=== PATIENT | male | born 1995 | race Caucasian/White ===

== ENCOUNTER 2023-12-23 13:10 | Emergency (ER) | payer OTHER ==
[2023-12-23 13:53] VITALS: O2SAT 98
--- NOTE | 2023-12-23 13:53 | ED Physician Documentation ---
PD HPI BACK PAIN - Stated complaint Stated Complaint: LOWER BACK/RT LEG PX - Chief complaint Chief Complaint: Back Pain - History obtained from History obtained from: Patient - History of Present Illness Timing - onset: How many days ago (3) Timing - duration: Days (3) Timing - details: Abrupt onset, Still present Location: Lower, Right, Other (middle) Quality: Pain, Spasm Associated symptoms: No: Fever, Weakness, Numbness, Incontinent of urine Contributing factors: Trauma (he was pushing a heavy barrel up an incline and felt an abrupt "snap" in low back and abrupt pain. Went to knees and unable to move initially due to pain on movement. Improved minimally over past 2 days.) Similar symptoms before: Has not had sx before Review of Systems Constitutional: denies: Fever, Chills : denies: Incontinent Neurologic: denies: Focal weakness, Numbness PD PAST MEDICAL HISTORY - Past Medical History Past Medical History: No - Past Surgical History Past Surgical History: Yes Ortho: Other - Present Medications Home Medications: Ambulatory Orders Medication Instructions Recorded Confirmed HYDROcod/ACETAM 5/325 [Page 5/325] 1 ea PO Q6H PRN #18 tablet 12/23/23 Meloxicam [Mobic] 7.5 mg PO BID 10 Days #20 tablet 12/23/23 QUEtiapine [SEROquel] 25 mg PO HS 12/23/23 12/23/23 methocarbamoL [Robaxin] 500 mg PO Q6H PRN #30 tablet 12/23/23 - Allergies Allergies/Adverse Reactions: Allergies Allergy/AdvReac Type Severity Reaction Status Date / Time No Known Drug Allergies Allergy Verified 12/23/23 13:34 - Social History Does the pt smoke?: No Smoking Status: Never smoker Does the pt drink ETOH?: No Does the pt have substance abuse?: No - Immunizations Immunizations are current?: Yes - POLST Patient has POLST: No PD ED PE NORMAL - Vitals Vital signs reviewed: Yes - General General: Alert and oriented X 3, Well developed/nourished, Other (appears in considerable pain with back movement. Slow and deliberate moving.) - Cardiac Cardiac: RRR, No murmur - Respiratory Respiratory: No respiratory distress, Clear bilaterally - Abdomen Abdomen: Non tender, Non distended - Back Back: No CVA TTP, Other (tender at left SI joint area without triggering point per se. Also some tender to percussion over lower lumbar area. ) - Derm Derm: Normal color, Warm and dry - Neuro Neuro: Alert and oriented X 3, No motor deficit, No sensory deficit, Other (normal patellar relfexes. ) Results - Rads (name of study) lumbar CT Relevant Findings:: Prelim report reviewed (minimal to mild disc bulge L5/S1. Else normal. ), EMP independent interpretation of test PD Medical Decision Making - ED course Complexity details: reviewed results (CT showing mild bulge at L5/S1. Certainly this could be older incidental finding, but can correspond to abrupt degree of pain onset he had. This could mean longer recovery time than if just muscular strain. But would not be interventional at that degree of it. ), re-evaluated patient (pain reasonably improved to tolerable with movement after IM meds here of toradol and dilaudid.), considered differential (presume mainly muscle strain/tear with pain at the SI area right and no leg neuro symptoms, but the abrupt snap and pain under heavy strain pushing had me concerned for compression fx, disc bulge, etc so eval with CT. ) Departure - Departure Disposition: 01 Home, Self Care Clinical Impression: Acute lumbar myofascial strain, Bulging of intervertebral disc Condition: Stable Record reviewed to determine appropriate education?: Yes Instructions: ED Sprain Strain Lumbar Prescriptions: Meloxicam [Mobic] 7.5 mg PO BID 10 Days #20 tablet HYDROcod/ACETAM 5/325 [Page 5/325] 1 ea PO Q6H PRN #18 tablet PRN Reason: Pain methocarbamoL [Robaxin] 500 mg PO Q6H PRN #30 tablet PRN Reason: Spasms Comments: Your CT scan shows a minimal disc bulging at the L5-S1 level. 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 However given your pain onset, it is possible there may have been a very mild disc inflammation that resulted at the time of the onset. It is very minimally different from the other discs and should not be a long-term consequence or problem majority of the time, but can be longer healing than simple muscle strain. Otherwise your pain and location of it to the right side does sound more more and mostly myofascial meaning the muscles in ligaments to the area. This will get treated with gentle range of motion and stretching and heat along with a combination of anti-inflammatories plus muscle relaxant. To that add Tylenol 500 to 650 mg 4 times daily regularly for the next several days to week. He can do topical treatments such as the lidocaine patches. Also physical treatments such as massage and chiropractic are good as well. Add hydrocodone every 4-6 hours as needed for worse pain. I would hope this would only be needed for the first several days or so. I would anticipate improvement over the next several days and resolution by a week or 2. Sometimes it can be longer lasting. Follow-up with your primary care or a walk-in clinic or such if persisting and not getting improved in a timely fashion. I sent your prescriptions to [facility] pharmacy. I am prescribing a short course of narcotic pain medication for you. These are potentially dangerous and addictive medications that should be used carefully. These medications may constipate you. Take an [id number] stool softener such as docusate twice daily with plenty of water while taking these medications. If you go 24 hours without a bowel movement, take [id number] MiraLAX, per package instructions. Do not drink or drive while taking these medications. If you received narcotic or sedating medications while in the emergency department do not drive for 24 hours. Store this medication in a safe, secure place and out of reach of children. It is a violation of federal law to give or sell this medication to another person or to use in a manner other than prescribed. The ED will not refill narcotic prescriptions, including prescriptions lost or stolen. You can dispose of unwanted medications at the [facility]'s office or at several pharmacies such as [facility]. Discharge Date/Time: 12/23/23 16:09
[2023-12-23] MEDS: methocarbamoL 500 MG TABLET PO STA (15:07)
[2023-12-23] MEDS: ACETAMINOPHEN 500 MG TABLET PO STA (15:08)
[2023-12-23] MEDS: HYDROmorphone 1 MG/ML CARPUJECT IM STA (15:11)
[2023-12-23] MEDS: KETOROLAC 30 MG/ML VIAL IM STA (15:12)
--- NOTE | 2023-12-23 15:51 | CT Report ---
PROCEDURE: Lumbar Spine WO INDICATIONS: abrupt lumbar pain pushing heavy weight TECHNIQUE: Noncontrast 3 mm thick sections acquired from the T12 level to the sacrum. Sagittal and coronal refo rmats were constructed. For radiation dose reduction, the following was used: automated exposure co ntrol, adjustment of mA and/or kV according to patient size. COMPARISON: None. FINDINGS: Image quality: Excellent. Bones: There is normal bony alignment. No acute vertebral body compression fractures. No suspiciou s lytic or blastic bony lesions. Central spinal caliber is of normal overall caliber. No pars defec ts. T12-L1: No disc bulge, spinal stenosis or foraminal narrowing. L1-L2: No disc bulge, spinal stenosis or foraminal narrowing. L2-L3: No disc bulge, spinal stenosis or foraminal narrowing. L3-L4: No disc bulge, spinal stenosis or foraminal narrowing. L4-L5: No disc bulge, spinal stenosis or foraminal narrowing. L5-S1: Minimal to mild disc bulge, without spinal stenosis or foraminal narrowing. Soft tissues: No retroperitoneal masses or hematomas. Visualized aorta is normal in caliber. IMPRESSION: Minimal to mild disc bulge L5-S1. Reviewed by: Antonia Wisdom MD on 12/23/2023 3:49 PM PDT Approved by: Antonia Wisdom MD on 12/23/2023 3:49 PM PDT Station ID: [id number]
[2023-12-23 16:28] VITALS: BP 128/72
== END 2023-12-23 16:09 | disposition home or self-care (01) ==
LOC: ED 13:10
DX: S39.012A Strain of muscle, fascia and tendon of lower back, initial encounter (principal); M51.36 Other intervertebral disc degeneration, lumbar region; X50.0XXA Overexertion from strenuous movement or load, initial encounter
CPT/HCPCS: 72131; 96372; 99284; A9270; J1170